=== PATIENT | male | born 1995 | race Caucasian/White ===

== ENCOUNTER 2018-05-20 09:41 | Emergency (ER) | payer OTHER ==
[~2018-05-20] VITALS: Ht 193 cm; Wt 86.6 kg
[2018-05-20 09:55] VITALS: BP 132/72; Ht 193 cm; Wt 86.6 kg
== END 2018-05-20 11:17 | disposition home or self-care (01) ==
LOC: ED 09:41
DX: S83.91XA Sprain of unspecified site of right knee, initial encounter (principal); X58.XXXA Exposure to other specified factors, initial encounter; Y93.B9 Activity, other involving muscle strengthening exercises; Y92.89 Other specified places as the place of occurrence of the external cause; Y99.8 Other external cause status

== ENCOUNTER 2018-10-24 12:34 | Emergency (ER) | payer OTHER ==
[~2018-10-24] VITALS: Ht 190.5 cm; Wt 87.1 kg
[2018-10-24 13:13] VITALS: Ht 190.5 cm; Wt 87.1 kg
[2018-10-24 15:08] VITALS: BP 141/72
== END 2018-10-24 15:08 | disposition home or self-care (01) ==
LOC: ED 12:34
DX: S46.912A Strain of unspecified muscle, fascia and tendon at shoulder and upper arm level, left arm, initial encounter (principal); S29.011A Strain of muscle and tendon of front wall of thorax, initial encounter; X50.3XXA Overexertion from repetitive movements, initial encounter; Y93.B9 Activity, other involving muscle strengthening exercises; Y92.89 Other specified places as the place of occurrence of the external cause; Y99.8 Other external cause status

== ENCOUNTER 2019-03-08 09:44 | Emergency (ER) | payer OTHER ==
[~2019-03-08] VITALS: Ht 188 cm; Wt 86.2 kg
[2019-03-08 09:54] VITALS: BP 113/71; Ht 188 cm; Wt 86.2 kg
== END 2019-03-08 11:00 | disposition left against medical advice (07) ==
LOC: ED 09:44
DX: Z53.21 Procedure and treatment not carried out due to patient leaving prior to being seen by health care provider (principal)